=== PATIENT | female | born 1940 | race African-American/Black ===

== ENCOUNTER → 2016-02-11 | Outpatient (CLI) | payer MEDICARE, OTHER ==
[~2016-02-11] VITALS: Ht 167.6 cm; Wt 50.8 kg
[~2016-02-11] MED LIST: CRANBERRY500 M3 PO; CULTURELLE1 EACH ORAL; FENTANYL1 EACH TDERMAL; GABAPENTIN600 MG ORAL; LEVOTHYROXINE100 MCG ORAL; LEXAPRO20 MG ORAL; LORAZEPAM2 MG ORAL; LYRICA50 MG ORAL; Lidocaine 2% MPF 5ml Vial INJ ONE; Lidocaine 4% Top Soln 50ml TOPIC ONE; MAGNESIUM200 M1 PO; MIRTAZAPINE15 M3 ORAL; OXYCODONE HCL5 M2 ORAL; RESTORIL30 MG ORAL; ROXICODONE5 MG ORAL; VIT C PO; ZINC50 M2 ORAL; [UNRECOGNIZED DRUG - OTHER] PO
--- NOTE | 2016-02-15 10:32 | Diagnostic Imaging Report ---
Indication: Pain in the lower spine Technique: IV administration 25.5 mCi 99M technetium MDP. Flow, blood pool, and static images obtained of the pelvic, lower lumbar, and lower thoracic regions. Comparison: No correlating studies are available Findings: Flow and blood pool images are unremarkable. Photopenic defects over the spine likely reflect prior spinal fusion hardware. There is mild increased uptake at the lumbosacral junction in the region of the lower pedicle screws. There is mild increased uptake on the iliac side of sacroiliac joints. There is increased activity along the course of the thoracic spine These most likely represent degenerative changes normal renal and bladder activity is demonstrated. No abnormal uptake to suggest osteomyelitis is demonstrated Impression: Postsurgical changes, as described. Likely degenerative changes. No definite scintigraphic findings to suggest acute osteomyelitis
== END | disposition home or self-care (01) ==
LOC: NUM 10:31
DX: M86.9 Osteomyelitis, unspecified (principal)
CPT/HCPCS: 78315; A4641

== ENCOUNTER 2016-02-12 11:52 | Outpatient (RCR) | payer MEDICARE, OTHER ==
[~2016-02-12 11:52] MED LIST changes: -Lidocaine 2% MPF 5ml Vial INJ ONE; -Lidocaine 4% Top Soln 50ml TOPIC ONE
== END 2016-03-09 | disposition home or self-care (01) ==
LOC: WCC 11:52
DX: L89.314 Pressure ulcer of right buttock, stage 4 (principal); L02.212 Cutaneous abscess of back [any part, except buttock and flank]; Z96.659 Presence of unspecified artificial knee joint; Z90.710 Acquired absence of both cervix and uterus
CPT/HCPCS: 11042; 11043; 87070; 87181; 87205

== ENCOUNTER → 2016-02-19 | Outpatient (CLI) | payer MEDICARE, OTHER ==
[~2016-02-19] VITALS: Ht 167.6 cm; Wt 50.8 kg
[~2016-02-19] MED LIST changes: +Lidocaine HCl 2% Jelly 5ml Tube TOPIC ONE
[2016-02-19 14:21] LABS: BASOPHILS % (AUTO) 0.9 % (0.0-2.0); EOSINOPHILS % (AUTO) 0.1 % (0.0-3.0); MEAN CORPUSCULAR HEMOGLOBIN 26.8 PG (27.0-31.0); MEAN CORPUSCULAR HGB CONC 30.1 G/DL (32.0-36.0); MEAN CORPUSCULAR VOLUME 89 FL (80-99); MEAN PLATELET VOLUME 5.5 FL (6.5-10.1); MONOCYTES % (AUTO) 11.3 % (1.0-10.0); NEUTROPHILS % (AUTO) 61.6 % (45.0-75.0); PLATELET COUNT 383 K/UL (150-450); RED BLOOD COUNT 3.18 M/UL (4.20-5.40); RED CELL DISTRIBUTION WIDTH 16.6 % (11.6-14.8); WHITE BLOOD COUNT 5.9 K/UL (4.8-10.8)
== END | disposition home or self-care (01) ==
LOC: WCC 13:49
DX: L98.429 Non-pressure chronic ulcer of back with unspecified severity (principal)
CPT/HCPCS: 36415; 85025; 85651; 86140

== ENCOUNTER 2016-03-10 12:00 | Outpatient (RCR) | payer MEDICARE, OTHER ==
[~2016-03-10] VITALS: Ht 167.6 cm; Wt 50.8 kg
[~2016-03-10 12:00] MED LIST changes: -Lidocaine HCl 2% Jelly 5ml Tube TOPIC ONE
[2016-03-12] MEDS ORDERED: Lidocaine/Epinephrine 2% 20 ML VIAL IV ONE (16:45)
[2016-03-19] MEDS ORDERED: Lidocaine 4% Top Soln 50ml TOPIC ONE (14:00)
== END 2016-04-06 | disposition home or self-care (01) ==
LOC: WCC 12:00
DX: L89.314 Pressure ulcer of right buttock, stage 4 (principal); G82.22 Paraplegia, incomplete; L02.212 Cutaneous abscess of back [any part, except buttock and flank]; Z90.710 Acquired absence of both cervix and uterus; Z96.659 Presence of unspecified artificial knee joint
CPT/HCPCS: 10060; 11043

== ENCOUNTER 2016-04-08 12:51 | Outpatient (RCR) | payer MEDICARE, OTHER ==
[~2016-04-08] VITALS: Ht 167.6 cm; Wt 50.8 kg
[2016-04-16] MEDS ORDERED: Lidocaine 2% MPF 5ml Vial INJ ONE (16:45)
[2016-04-16] MEDS ORDERED: Silver Nitrate Stick TOPIC ONE (16:45)
== END 2016-05-07 | disposition home or self-care (01) ==
LOC: WCC 12:51
DX: L89.159 Pressure ulcer of sacral region, unspecified stage (principal); L02.212 Cutaneous abscess of back [any part, except buttock and flank]; Z88.8 Allergy status to other drugs, medicaments and biological substances; Z90.710 Acquired absence of both cervix and uterus; Z96.659 Presence of unspecified artificial knee joint; G82.20 Paraplegia, unspecified
CPT/HCPCS: 10060; 11043; 11044

== ENCOUNTER 2016-06-10 12:00 | Outpatient (RCR) | payer MEDICARE, OTHER | END 2016-07-07 | disposition home or self-care (01) | LOC: WCC 12:00 | DX: L89.153 Pressure ulcer of sacral region, stage 3 (principal); L89.314 Pressure ulcer of right buttock, stage 4; L02.31 Cutaneous abscess of buttock; L89.323 Pressure ulcer of left buttock, stage 3; S31.000S Unspecified open wound of lower back and pelvis without penetration into retroperitoneum, sequela; G82.22 Paraplegia, incomplete; Z90.710 Acquired absence of both cervix and uterus; Z96.659 Presence of unspecified artificial knee joint; G82.20 Paraplegia, unspecified | CPT/HCPCS: 11042; 11043; 97605 ==

== ENCOUNTER 2016-06-17 14:22 | Outpatient (CLI) | payer MEDICARE, OTHER ==
--- NOTE | 2016-06-18 10:37 | Diagnostic Imaging Report ---
Indication: Right hip pain. Chronic nonhealing decubitus ulcer Technique: continuous helical imaging in the transaxial plane was performed from the iliac crests to the pubic symphysis with attention to the right hip. Coronal 2-D reformatted images were also generated. Study obtained in a Siemens Sensation [address] total DLP 318 mGycm CTD/vol 11 mGy Comparison: None Findings: There is no evidence of an acute fracture or significant malalignment identified on this examination. There is decubitus ulcer noted posterior to the right hip. A tract of air noted extending deep within the soft tissues with air surrounding the right greater trochanter within what is probably the greater trochanteric bursa. The study was done without intravenous contrast material. Difficult to assess for abscess given this limitation but no obvious large fluid collection is identified. There is generalized subcutaneous edema present presumably on the basis of cellulitis. There is no erosion of the cortex of the proximal femur. There is no periosteal reaction definitely identified. Impression: Decubitus ulcer tracking deep within the soft tissues in continuity with the greater trochanter bursa. No obvious abscess but the study is limited in this regard as no IV contrast was given. No obvious CT evidence for acute osteomyelitis. Note: MRI and bone scan are much more sensitive for acute osteomyelitis. CT cannot make the diagnosis until relatively late in the disease process. The CT scanner at [facility] is accredited by the [employer] and the scans are performed using dose optimization techniques as appropriate to a performed exam including Automatic Exposure control.
== END 2016-06-17 16:00 | disposition home or self-care (01) ==
LOC: RAD 14:22
DX: S71.001A Unspecified open wound, right hip, initial encounter (principal); X58.XXXA Exposure to other specified factors, initial encounter; Y93.9 Activity, unspecified; Y92.9 Unspecified place or not applicable

== ENCOUNTER 2016-08-05 12:48 | Outpatient (RCR) | payer MEDICARE, OTHER | END 2016-08-06 | disposition home or self-care (01) | LOC: WCC 12:48 | DX: L89.154 Pressure ulcer of sacral region, stage 4 (principal); L89.320 Pressure ulcer of left buttock, unstageable; Z90.710 Acquired absence of both cervix and uterus; Z96.659 Presence of unspecified artificial knee joint; G82.20 Paraplegia, unspecified | CPT/HCPCS: 11042; 11045 ==

== ENCOUNTER 2016-08-12 12:37 | Outpatient (RCR) | payer MEDICARE, OTHER ==
[~2016-08-12] VITALS: Ht 167.6 cm; Wt 50.8 kg
[2016-08-13] MEDS ORDERED: Lidocaine 2% MPF 5ml Vial INJ ONE (12:45)
== END 2016-09-06 | disposition home or self-care (01) ==
LOC: WCC 12:37
DX: L89.152 Pressure ulcer of sacral region, stage 2 (principal); L89.320 Pressure ulcer of left buttock, unstageable; Z90.710 Acquired absence of both cervix and uterus; Z96.659 Presence of unspecified artificial knee joint; Z88.8 Allergy status to other drugs, medicaments and biological substances
CPT/HCPCS: 11042; 11043; 11046

== ENCOUNTER 2016-09-09 12:40 | Outpatient (RCR) | payer MEDICARE, OTHER | END 2016-10-07 | disposition home or self-care (01) | LOC: WCC 12:40 | DX: L89.324 Pressure ulcer of left buttock, stage 4 (principal); G82.20 Paraplegia, unspecified; Z90.710 Acquired absence of both cervix and uterus; Z90.49 Acquired absence of other specified parts of digestive tract; Z96.659 Presence of unspecified artificial knee joint | CPT/HCPCS: 11043; 15275; 97605; Q4131 ==

== ENCOUNTER 2016-09-23 12:58 | Outpatient (CLI) | payer MEDICARE, OTHER | END 2016-09-23 14:58 | disposition home or self-care (01) | LOC: LAB 12:58 | DX: E46 Unspecified protein-calorie malnutrition (principal) | CPT/HCPCS: 84134 ==

== ENCOUNTER 2016-10-28 12:14 | Outpatient (RCR) | payer MEDICARE, OTHER ==
[~2016-10-28] VITALS: Ht 167.6 cm; Wt 50.8 kg
[2016-10-29] MEDS ORDERED: Lidocaine HCl 2% Jelly 5ml Tube TOPIC ONE (09:15)
== END 2016-11-06 | disposition home or self-care (01) ==
LOC: WCC 12:14
DX: L89.324 Pressure ulcer of left buttock, stage 4 (principal); S31.000A Unspecified open wound of lower back and pelvis without penetration into retroperitoneum, initial encounter; X58.XXXA Exposure to other specified factors, initial encounter; Y93.9 Activity, unspecified; Y92.9 Unspecified place or not applicable; Z88.8 Allergy status to other drugs, medicaments and biological substances; G82.20 Paraplegia, unspecified; Z90.710 Acquired absence of both cervix and uterus; Z90.49 Acquired absence of other specified parts of digestive tract; Z96.659 Presence of unspecified artificial knee joint
CPT/HCPCS: 11043; 17250; 97605

== ENCOUNTER 2016-11-25 12:00 | Outpatient (RCR) | payer MEDICARE, OTHER | END 2016-12-07 | disposition home or self-care (01) | LOC: WCC 12:00 | DX: L89.324 Pressure ulcer of left buttock, stage 4 (principal); B99.9 Unspecified infectious disease; G82.20 Paraplegia, unspecified; Z90.710 Acquired absence of both cervix and uterus; Z90.49 Acquired absence of other specified parts of digestive tract; Z96.659 Presence of unspecified artificial knee joint | CPT/HCPCS: 11042; 11043; 11044 ==

== ENCOUNTER 2016-12-09 12:30 | Outpatient (RCR) | payer MEDICARE, OTHER ==
[~2016-12-09] VITALS: Ht 167.6 cm; Wt 50.8 kg
[2016-12-23] MEDS ORDERED: Lidocaine 4% Top Soln 50ml TOPIC ONE (16:15)
[2017-01-07] MEDS ORDERED: Lidocaine 2% 20mg/ml/EPI 0.01mg/ml 20ml IV ONE (10:00)
== END 2017-01-06 | disposition home or self-care (01) ==
LOC: WCC 12:30
DX: L89.329 Pressure ulcer of left buttock, unspecified stage (principal); S31.000A Unspecified open wound of lower back and pelvis without penetration into retroperitoneum, initial encounter; X58.XXXA Exposure to other specified factors, initial encounter; Y93.9 Activity, unspecified; Y92.9 Unspecified place or not applicable; Z90.710 Acquired absence of both cervix and uterus; Z96.659 Presence of unspecified artificial knee joint; G82.20 Paraplegia, unspecified
CPT/HCPCS: 10061; 11042; 11043

== ENCOUNTER 2017-01-13 12:30 | Outpatient (RCR) | payer MEDICARE, OTHER | END 2017-02-06 | disposition home or self-care (01) | LOC: WCC 12:30 | DX: L89.324 Pressure ulcer of left buttock, stage 4 (principal); S31.000A Unspecified open wound of lower back and pelvis without penetration into retroperitoneum, initial encounter; L08.9 Local infection of the skin and subcutaneous tissue, unspecified; X58.XXXA Exposure to other specified factors, initial encounter; Y93.9 Activity, unspecified; Y92.9 Unspecified place or not applicable; G82.20 Paraplegia, unspecified; Z90.710 Acquired absence of both cervix and uterus; Z96.659 Presence of unspecified artificial knee joint; Z88.8 Allergy status to other drugs, medicaments and biological substances | CPT/HCPCS: 11043; 11044 ==

== ENCOUNTER 2017-02-10 12:03 | Outpatient (RCR) | payer MEDICARE, OTHER | END 2017-03-09 | disposition home or self-care (01) | LOC: WCC 12:03 | DX: L89.324 Pressure ulcer of left buttock, stage 4 (principal); L02.212 Cutaneous abscess of back [any part, except buttock and flank]; G82.22 Paraplegia, incomplete; Z88.8 Allergy status to other drugs, medicaments and biological substances; Z90.710 Acquired absence of both cervix and uterus; Z96.659 Presence of unspecified artificial knee joint | CPT/HCPCS: 11043; 11044 ==

== ENCOUNTER 2017-02-10 12:38 | Outpatient (CLI) | payer MEDICARE, OTHER | END 2017-02-10 14:38 | disposition home or self-care (01) | LOC: LAB 12:38 | DX: E46 Unspecified protein-calorie malnutrition (principal) | CPT/HCPCS: 84134 ==

== ENCOUNTER 2017-03-24 12:16 | Outpatient (RCR) | payer MEDICARE, OTHER | END 2017-04-06 | disposition home or self-care (01) | LOC: WCC 12:16 | DX: L89.324 Pressure ulcer of left buttock, stage 4 (principal); S31.000A Unspecified open wound of lower back and pelvis without penetration into retroperitoneum, initial encounter; X58.XXXA Exposure to other specified factors, initial encounter; Y93.9 Activity, unspecified; Y92.9 Unspecified place or not applicable; G82.20 Paraplegia, unspecified; Z88.8 Allergy status to other drugs, medicaments and biological substances; Z90.710 Acquired absence of both cervix and uterus; Z96.659 Presence of unspecified artificial knee joint | CPT/HCPCS: 11043 ==

== ENCOUNTER 2017-04-07 11:44 | Outpatient (RCR) | payer MEDICARE, OTHER | END 2017-05-07 | disposition home or self-care (01) | LOC: WCC 11:44 | DX: L89.324 Pressure ulcer of left buttock, stage 4 (principal); L89.152 Pressure ulcer of sacral region, stage 2; G82.20 Paraplegia, unspecified; S31.000A Unspecified open wound of lower back and pelvis without penetration into retroperitoneum, initial encounter; X58.XXXA Exposure to other specified factors, initial encounter; Y93.9 Activity, unspecified; Y92.9 Unspecified place or not applicable; Z90.710 Acquired absence of both cervix and uterus; Z96.659 Presence of unspecified artificial knee joint; Z88.8 Allergy status to other drugs, medicaments and biological substances | CPT/HCPCS: 11042; 11044; 87070; 87181; 87205 ==

== ENCOUNTER 2017-05-05 13:53 | Outpatient (CLI) | payer MEDICARE, OTHER ==
[2017-05-05 14:29] LABS: BASOPHILS % (AUTO) 0.9 % (0.0-2.0); EOSINOPHILS % (AUTO) 0.2 % (0.0-3.0); HEMATOCRIT 25.4 % (37.0-47.0); HEMOGLOBIN 8.3 G/DL (12.0-16.0); LYMPHOCYTES % (AUTO) 14.6 % (20.0-45.0); MEAN CORPUSCULAR VOLUME 89 FL (80-99); MONOCYTES % (AUTO) 8.4 % (1.0-10.0); NEUTROPHILS % (AUTO) 75.9 % (45.0-75.0); PLATELET COUNT 327 K/UL (150-450); RED BLOOD COUNT 2.86 M/UL (4.20-5.40); RED CELL DISTRIBUTION WIDTH 13.3 % (11.6-14.8); WHITE BLOOD COUNT 10.8 K/UL (4.8-10.8)
== END 2017-05-05 15:53 | disposition home or self-care (01) ==
LOC: LAB 13:53
DX: E46 Unspecified protein-calorie malnutrition (principal)
CPT/HCPCS: 36415; 84134; 85025

== ENCOUNTER 2017-05-12 12:40 | Outpatient (RCR) | payer MEDICARE, OTHER ==
[~2017-05-12] VITALS: Ht 167.6 cm; Wt 50.8 kg
[2017-05-26] MEDS ORDERED: Lidocaine 4% Top Soln 50ml TOPIC ONE (16:45)
[2017-05-26] MEDS ORDERED: Lidocaine 1% MPF 10mg/ml 5ml INJ ONE (16:45)
== END 2017-06-06 | disposition home or self-care (01) ==
LOC: WCC 12:40
DX: L89.324 Pressure ulcer of left buttock, stage 4 (principal); L89.152 Pressure ulcer of sacral region, stage 2; S31.000A Unspecified open wound of lower back and pelvis without penetration into retroperitoneum, initial encounter; X58.XXXA Exposure to other specified factors, initial encounter; Z90.710 Acquired absence of both cervix and uterus; Z96.659 Presence of unspecified artificial knee joint; G82.20 Paraplegia, unspecified; Z88.8 Allergy status to other drugs, medicaments and biological substances
CPT/HCPCS: 11044

== ENCOUNTER 2017-08-11 12:22 | Outpatient (RCR) | payer MEDICARE, OTHER ==
[~2017-08-11] VITALS: Ht 167.6 cm; Wt 50.8 kg
[2017-09-01] MEDS ORDERED: Lidocaine 4% Top Soln 50ml TOPIC ONE (09:45)
== END 2017-09-06 | disposition home or self-care (01) ==
LOC: WCC 12:22
DX: S21.90XA Unspecified open wound of unspecified part of thorax, initial encounter (principal); S31.829A Unspecified open wound of left buttock, initial encounter; X58.XXXA Exposure to other specified factors, initial encounter; Y93.9 Activity, unspecified; Y92.9 Unspecified place or not applicable; Z90.710 Acquired absence of both cervix and uterus; Z96.659 Presence of unspecified artificial knee joint; G82.20 Paraplegia, unspecified; Z88.8 Allergy status to other drugs, medicaments and biological substances
CPT/HCPCS: 11043; 11044; 84134

== ENCOUNTER → 2017-08-11 | Outpatient (CLI) | payer MEDICARE, OTHER | END | disposition home or self-care (01) | LOC: LAB 13:14 | DX: E46 Unspecified protein-calorie malnutrition (principal) | CPT/HCPCS: 84134 ==

== ENCOUNTER 2017-09-08 12:20 | Outpatient (RCR) | payer MEDICARE, OTHER ==
[~2017-09-08] VITALS: Ht 167.6 cm; Wt 50.8 kg
== END 2017-10-07 | disposition home or self-care (01) ==
LOC: WCC 12:20
DX: S21.90XD Unspecified open wound of unspecified part of thorax, subsequent encounter (principal); S31.829D Unspecified open wound of left buttock, subsequent encounter; X58.XXXD Exposure to other specified factors, subsequent encounter; Z90.710 Acquired absence of both cervix and uterus; Z96.659 Presence of unspecified artificial knee joint; G82.20 Paraplegia, unspecified; Z88.8 Allergy status to other drugs, medicaments and biological substances
CPT/HCPCS: 11043; 11044

== ENCOUNTER 2017-11-03 12:24 | Outpatient (RCR) | payer MEDICARE, OTHER | END 2017-11-06 | disposition home or self-care (01) | LOC: WCC 12:24 | DX: S21.90XA Unspecified open wound of unspecified part of thorax, initial encounter (principal); S31.829A Unspecified open wound of left buttock, initial encounter; X58.XXXA Exposure to other specified factors, initial encounter; Y92.9 Unspecified place or not applicable; R50.9 Fever, unspecified; Z90.710 Acquired absence of both cervix and uterus; Z96.659 Presence of unspecified artificial knee joint; G82.20 Paraplegia, unspecified; Z88.8 Allergy status to other drugs, medicaments and biological substances | CPT/HCPCS: 11043; 11044 ==

== ENCOUNTER 2017-11-10 11:57 | Outpatient (RCR) | payer MEDICARE, OTHER ==
[~2017-11-10] VITALS: Ht 170.2 cm; Wt 45.4 kg
[2017-11-10] MEDS ORDERED: Lidocaine 1% MPF 10mg/ml 5ml INJ ONE (14:00)
== END 2017-12-07 | disposition home or self-care (01) ==
LOC: WCC 11:57
DX: S31.829A Unspecified open wound of left buttock, initial encounter (principal); S21.90XA Unspecified open wound of unspecified part of thorax, initial encounter; X58.XXXA Exposure to other specified factors, initial encounter; Z90.710 Acquired absence of both cervix and uterus; Z96.659 Presence of unspecified artificial knee joint; G82.20 Paraplegia, unspecified
CPT/HCPCS: 11042; 11043; 15004

== ENCOUNTER 2017-12-08 10:28 | Outpatient (RCR) | payer MEDICARE, OTHER | END 2018-01-06 | disposition home or self-care (01) | LOC: WCC 10:28 | DX: S31.000S Unspecified open wound of lower back and pelvis without penetration into retroperitoneum, sequela (principal); G82.22 Paraplegia, incomplete; L89.154 Pressure ulcer of sacral region, stage 4; X58.XXXS Exposure to other specified factors, sequela; Z90.710 Acquired absence of both cervix and uterus; Z96.659 Presence of unspecified artificial knee joint | CPT/HCPCS: 97605 ==

== ENCOUNTER 2018-01-12 09:57 | Outpatient (RCR) | payer MEDICARE, OTHER | END 2018-02-06 | disposition home or self-care (01) | LOC: WCC 09:57 | DX: L89.324 Pressure ulcer of left buttock, stage 4 (principal); S31.000S Unspecified open wound of lower back and pelvis without penetration into retroperitoneum, sequela; G82.22 Paraplegia, incomplete; Z88.8 Allergy status to other drugs, medicaments and biological substances; Z90.710 Acquired absence of both cervix and uterus; Z96.659 Presence of unspecified artificial knee joint | CPT/HCPCS: 10060; 11043; 97605 ==

== ENCOUNTER 2018-02-09 10:25 | Outpatient (RCR) | payer MEDICARE, OTHER ==
[~2018-02-09] VITALS: Ht 167.6 cm; Wt 45.4 kg
== END 2018-03-09 | disposition home or self-care (01) ==
LOC: WCC 10:25
DX: L89.324 Pressure ulcer of left buttock, stage 4 (principal); S31.000A Unspecified open wound of lower back and pelvis without penetration into retroperitoneum, initial encounter; X58.XXXA Exposure to other specified factors, initial encounter; G82.20 Paraplegia, unspecified; Z90.710 Acquired absence of both cervix and uterus; Z96.659 Presence of unspecified artificial knee joint
CPT/HCPCS: 11043

== ENCOUNTER 2018-03-23 12:29 | Outpatient (RCR) | payer MEDICARE, OTHER ==
[~2018-03-23] VITALS: Ht 167.6 cm; Wt 45.4 kg
[2018-03-27] MEDS ORDERED: Lidocaine 2% MPF 5ml Vial INJ ONE (09:15)
== END 2018-04-06 | disposition home or self-care (01) ==
LOC: WCC 12:29
DX: L89.324 Pressure ulcer of left buttock, stage 4 (principal); S21.209A Unspecified open wound of unspecified back wall of thorax without penetration into thoracic cavity, initial encounter; X58.XXXA Exposure to other specified factors, initial encounter; Z88.8 Allergy status to other drugs, medicaments and biological substances; Z90.710 Acquired absence of both cervix and uterus; Z96.659 Presence of unspecified artificial knee joint
CPT/HCPCS: 10140; 11043

== ENCOUNTER 2018-05-04 12:00 | Outpatient (RCR) | payer MEDICARE, OTHER | END 2018-05-07 | disposition home or self-care (01) | LOC: WCC 12:00 | DX: L89.324 Pressure ulcer of left buttock, stage 4 (principal); S21.209A Unspecified open wound of unspecified back wall of thorax without penetration into thoracic cavity, initial encounter; X58.XXXA Exposure to other specified factors, initial encounter; G82.20 Paraplegia, unspecified; Z90.710 Acquired absence of both cervix and uterus | CPT/HCPCS: 11043; 11044 ==

== ENCOUNTER 2018-05-18 12:08 | Outpatient (RCR) | payer MEDICARE, OTHER | END 2018-06-06 | disposition home or self-care (01) | LOC: WCC 12:08 | DX: L89.324 Pressure ulcer of left buttock, stage 4 (principal); S21.90XA Unspecified open wound of unspecified part of thorax, initial encounter; S21.90XD Unspecified open wound of unspecified part of thorax, subsequent encounter; X58.XXXD Exposure to other specified factors, subsequent encounter; Z90.710 Acquired absence of both cervix and uterus; Z96.659 Presence of unspecified artificial knee joint; G82.20 Paraplegia, unspecified; G40.909 Epilepsy, unspecified, not intractable, without status epilepticus; Z88.8 Allergy status to other drugs, medicaments and biological substances; Z79.899 Other long term (current) drug therapy | CPT/HCPCS: 11042; 11043 ==

== ENCOUNTER 2018-06-07 10:12 | Outpatient (RCR) | payer MEDICARE, OTHER | END 2018-07-07 | disposition home or self-care (01) | LOC: WCC 10:12 | DX: L89.324 Pressure ulcer of left buttock, stage 4 (principal); S21.209A Unspecified open wound of unspecified back wall of thorax without penetration into thoracic cavity, initial encounter; L89.109 Pressure ulcer of unspecified part of back, unspecified stage; Z90.710 Acquired absence of both cervix and uterus; Z96.659 Presence of unspecified artificial knee joint; G82.20 Paraplegia, unspecified; Z74.01 Bed confinement status; Z79.899 Other long term (current) drug therapy ==

== ENCOUNTER 2018-06-08 11:59 | Outpatient (RCR) | payer MEDICARE, OTHER | END 2018-07-07 | disposition home or self-care (01) | LOC: WCC 11:59 | DX: L89.324 Pressure ulcer of left buttock, stage 4 (principal); S21.209A Unspecified open wound of unspecified back wall of thorax without penetration into thoracic cavity, initial encounter; L89.109 Pressure ulcer of unspecified part of back, unspecified stage; Z88.8 Allergy status to other drugs, medicaments and biological substances; Z90.710 Acquired absence of both cervix and uterus; Z96.659 Presence of unspecified artificial knee joint; G82.20 Paraplegia, unspecified; Z74.01 Bed confinement status; Z79.899 Other long term (current) drug therapy | CPT/HCPCS: 11042; 11043 ==

== ENCOUNTER 2018-07-27 12:00 | Outpatient (RCR) | payer MEDICARE, OTHER | END 2018-08-06 | disposition home or self-care (01) | LOC: WCC 12:00 | DX: L89.324 Pressure ulcer of left buttock, stage 4 (principal); L89.152 Pressure ulcer of sacral region, stage 2; S21.209A Unspecified open wound of unspecified back wall of thorax without penetration into thoracic cavity, initial encounter; X58.XXXA Exposure to other specified factors, initial encounter; Y92.9 Unspecified place or not applicable; G82.20 Paraplegia, unspecified; G40.909 Epilepsy, unspecified, not intractable, without status epilepticus; Z88.8 Allergy status to other drugs, medicaments and biological substances | CPT/HCPCS: 11042; 11043; 11044 ==

== ENCOUNTER 2018-08-17 13:27 | Outpatient (RCR) | payer MEDICARE, OTHER | END 2018-09-06 | disposition home or self-care (01) | LOC: WCC 13:27 | DX: L89.324 Pressure ulcer of left buttock, stage 4 (principal); L89.212 Pressure ulcer of right hip, stage 2; L89.109 Pressure ulcer of unspecified part of back, unspecified stage; G83.9 Paralytic syndrome, unspecified; Z74.01 Bed confinement status; G40.909 Epilepsy, unspecified, not intractable, without status epilepticus; Z96.659 Presence of unspecified artificial knee joint; Z90.710 Acquired absence of both cervix and uterus; Z88.8 Allergy status to other drugs, medicaments and biological substances; Z79.899 Other long term (current) drug therapy | CPT/HCPCS: 11042; 11043; 11044 ==

== ENCOUNTER 2018-09-07 12:03 | Outpatient (RCR) | payer MEDICARE, OTHER ==
[~2018-09-07] VITALS: Ht 167.6 cm; Wt 45.4 kg
[2018-10-05] MEDS ORDERED: Lidocaine HCl 2% Jelly 6ml Tube TOPIC ONE (15:15)
== END 2018-10-07 | disposition home or self-care (01) ==
LOC: WCC 12:03
DX: L89.322 Pressure ulcer of left buttock, stage 2 (principal); L89.154 Pressure ulcer of sacral region, stage 4; S31.0 Open wound of lower back and pelvis; G82.22 Paraplegia, incomplete; Z88.8 Allergy status to other drugs, medicaments and biological substances; Z74.01 Bed confinement status
CPT/HCPCS: 11042; 11043; 11044

== ENCOUNTER 2018-09-23 13:50 | Emergency (ER) | payer MEDICARE, OTHER ==
[~2018-09-23] VITALS: Ht 172.7 cm; Wt 44.5 kg
[2018-09-23 14:16] VITALS: BP 102/68
--- NOTE | 2018-09-23 14:25 | NUR ---
ED Nurse Note: Patient brought into ED by her daughter in a wheelchair as Dr. Mcconnell told the patient to go to ED for IV antibiotics. patiet denies any pain or discomfort at this time
[2018-09-23] MEDS ORDERED: Ertapenem 1 GM in NS 55 ML IVPB ONE (15:00)
--- NOTE | 2018-09-23 15:45 | Emergency Room Report ---
History of Present Illness General Chief Complaint: General Complaint Source: Patient, Medical Record Present Illness HPI 78-year-old female presents ED for evaluation. Is here for IV antibiotics. PMD is Dr. Mcconnell who has been treating patient for UTI. 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 Patient several oral antibiotics and requires IV antibiotics. Denies fevers or chills. Denies flank pain nausea or vomiting. States she feels well. No other aggravating relieving factors. Denies any other associated symptoms Allergies: Coded Allergies: ADHESIVE (Verified Adverse Reaction, Severe, skin buitrago, 08/14/14) PROPOXYPHENE (Verified Adverse Reaction, Severe, Shortness of Breath, ) Patient History Past Medical History: none, HTN, other - gastric cancer Past Surgical History: none Pertinent Family History: none Social History: Denies: smoking, alcohol use, drug use Last Menstrual Period: N/A Now: No Immunizations: UTD Reviewed Nursing Documentation: PMH: Agreed; PSxH: Agreed Nursing Documentation-PMH Hx Cardiac Problems: Yes Hx Cancer: Yes - GASTRIC Hx Gastrointestinal Problems: Yes Hx Neurological Problems: Yes Hx Neurologic Surgery: Yes - LOWBACK SPINE FUSION THAT RESULTED TO BLOOD CLOT THEN PARAPLEGIA Review of Systems All Other Systems: negative except mentioned in HPI Physical Exam Vital Signs Date Time Temp Pulse Resp B/P (MAP) Pulse Ox O2 Delivery O2 Flow Rate FiO2 09/23/18 14:16 98.4 95 18 102/68 (79) 92 Room Air Sp02 EP Interpretation: reviewed, normal General Appearance: no apparent distress, alert, GCS 15, non-toxic, thin Head: normocephalic, atraumatic Eyes: bilateral eye normal inspection, bilateral eye PERRL ENT: hearing grossly normal, normal pharynx, no angioedema, normal voice Neck: full range of motion, supple/symm/no masses Respiratory: chest non-tender, lungs clear, normal breath sounds, speaking full sentences Cardiovascular #1: regular rate, rhythm, no edema Cardiovascular #2: 2+ carotid (R), 2+ carotid (L), 2+ radial (R), 2+ radial (L) , 2+ dorsalis pedis (R), 2+ dorsalis pedis (L) Gastrointestinal: normal bowel sounds, non tender, soft, non-distended, no guarding, no rebound Rectal: deferred Genitourinary: normal inspection, no CVA tenderness Musculoskeletal: back normal, gait/station normal, normal range of motion, non- tender Neurologic: alert, oriented x3, responsive, motor strength/tone normal, sensory intact, speech normal Psychiatric: judgement/insight normal, memory normal, mood/affect normal, no suicidal/homicidal ideation Reflexes: 3+ bicep (R), 3+ bicep (L), 3+ tricep (R), 3+ tricep (L), 3+ knee (R) , 3+ knee (L) Lymphatic: no adenopathy Medical Decision Making Diagnostic Impression: Primary Impression: UTI (urinary tract infection) Qualified Codes: N39.0 - Urinary tract infection, site not specified ER Course Hospital Course 78 yo F presents to ED for IV abx. h/o drug resistant UTIs. Differential diagnoses include: UTI, cystitis, pyelonephritis Clinical course Patient placed on stretcher. After initial history and physical I discussed case with Dr Mcconnell (PMD). Patient received IV Invanz here in ED. Does not require labs or further work- up. Patient tolerated medication without complication. Safe for discharge with close outpatient follow-up. UA noted to be unremarkable. Given patient's discomfort and dysuria I agreed to treat patient with antibiotics. Diagnosis - UTI Stable and discharged home. Instructed to followup with PMD. Return to ED if symptoms recur or worsen Last Vital Signs Date Time Temp Pulse Resp B/P (MAP) Pulse Ox O2 Delivery O2 Flow Rate FiO2 09/23/18 14:29 95 18 Room Air 09/23/18 14:16 98.4 102/68 92 Status: improved Disposition: HOME, SELF-CARE Condition: Stable Zachariah Goldstein MD Sep 23, 2018 15:45
[2018-09-23 15:55] VITALS: BP 102/68
--- NOTE | 2018-09-23 15:55 | NUR ---
ER DISCHARGE NOTE: Patient is cleared to be discharged per ERMD DR MAIN, pt is aox4, on room air, with stable vital signs. pt was given dc and prescription instructions, pt was able to verbalize understanding, pt id band and iv site removed without complications. pt is able to ambulate with steady gait. pt took all belongings.
--- NOTE | 2018-09-23 20:00 | History and Physical Report ---
DATE OF ADMISSION: 09/23/2018 PERTINENT HISTORY: The patient is a 78-year-old lady, well known to me who was seen in the office on September 22, 2018. She has a history of chronic suprapubic catheter. She has paraplegia and neurogenic bladder. She has had recurrent UTIs with ESBL and yesterday she had temperature of 102, was cultured and given 1 gram of ertapenem, 1 gram of vancomycin. She also completed a 6-week course of daptomycin for presumed osteomyelitis that she has had a skin wounds adjacent to her spine, decubitus on the buttocks, and there was concern of osteomyelitis even though was not seen on imaging, wound was closed of the spine. She also completed a course of oral doxycycline after the 6 week course of intravenous antibiotics and she saw her wound doctor Dr. Ziegler this week who felt the wounds were clean and not a source of infection. She is a well taken care of by her daughter at home. She has had multiple hospitalizations and did not wish to be admitted to the hospital. PERTINENT PHYSICAL FINDINGS: VITAL SIGNS: Temperature 98.4, pulse ox 92, respirations 18, pulse 95. HEAD, EYES, EARS, NOSE, AND THROAT: Oral mucosa is moist. Sclerae are nonicteric. NECK: No adenopathy. LUNGS: Clear. HEART: Regular rhythm. ABDOMEN: Soft with ostomy bag. Gastrojejunostomy and suprapubic catheter. EXTREMITIES: Show muscle atrophy. NEUROLOGIC: She is paraplegic. IMPRESSION: 1. Urinary tract infection, presumed ESBL. Final culture pending. 2. Recurrent fevers. 3. Moderate malnutrition. 4. Paraplegia. 5. Anemia of chronic disease. PLAN: Ertapenem 1 g IV in the emergency room on September 23, 2018 and she will come back on September 24, 2018 for this same. I will follow up on her cultures and she will come to my office on September 25, 2018 for further intravenous antibiotics. Juan Mcconnell M.D. DR: Can JOB#: [id number] CC:
== END 2018-09-23 15:55 | disposition home or self-care (01) ==
LOC: EMR 14:59
DX: N39.0 Urinary tract infection, site not specified (principal); Z85.9 Personal history of malignant neoplasm, unspecified; Z98.1 Arthrodesis status; G82.20 Paraplegia, unspecified; I10 Essential (primary) hypertension; Z88.8 Allergy status to other drugs, medicaments and biological substances; Z91.048 Other nonmedicinal substance allergy status
CPT/HCPCS: 96365; 99284; J1335

== ENCOUNTER 2018-09-24 13:42 | Emergency (ER) | payer MEDICARE, OTHER ==
[~2018-09-24] VITALS: Ht 172.7 cm; Wt 44.5 kg
[2018-09-24 13:56] VITALS: BP 115/70
--- NOTE | 2018-09-24 13:56 | NUR ---
ED Nurse Note: Pt came in for IV antibiotic and pt states she has temp 102.5 F on tuesday at her doctor's ofice. Pt was seen here at [facility] yesterday. AAO x4, ambulatory with non labored breathing.
[2018-09-24] MEDS ORDERED: Ertapenem 1 GM in NS 55 ML IVPB ONE (14:15)
[2018-09-24 15:05] VITALS: BP 121/77
--- NOTE | 2018-09-24 15:06 | NUR ---
ER DISCHARGE NOTE: Patient is cleared to be discharged per ERMD, pt is aox4, on room air, with stable vital signs. pt was given dc instructions and an appointment with Dr Mcconnell tomorrow has been confirmed, pt was able to verbalize understanding, pt id band and iv site removed without complications. pt is being assisted with WC by family memeber. pt took all belongings.
--- NOTE | 2018-09-24 18:40 | Emergency Room Report ---
History of Present Illness General Chief Complaint: Fever Source: Patient, Family Member Present Illness HPI 78-year-old female presents ED for evaluation. Patient presenting with UTI. PMD is Dr. Mcconnell. Patient referred here for IV antibiotics as patient has multidrug-resistant UTI in the past. Was given Invanz IV piggyback in his office on Tuesday and came in yesterday for IV antibiotics as his office is closed. Patient states she feels fine. Denies fevers or chills. No other aggravating relieving factors. Denies any other associated symptoms Allergies: Coded Allergies: ADHESIVE (Verified Adverse Reaction, Severe, skin buitrago, 08/14/14) PROPOXYPHENE (Verified Adverse Reaction, Severe, Shortness of Breath, ) Patient History Past Medical History: other - gastric cancer Past Surgical History: none Pertinent Family History: none Social History: Denies: smoking, alcohol use, drug use Now: No Immunizations: UTD Reviewed Nursing Documentation: PMH: Agreed; PSxH: Agreed Nursing Documentation-PMH Past Medical History: No History, Except For Hx Cardiac Problems: No - hystrectomy, back surgery Hx Cancer: Yes - GASTRIC Hx Gastrointestinal Problems: Yes History Of Psychiatric Problem: No - depression, anxiety Hx Neurological Problems: Yes Hx Neurologic Surgery: Yes - LOWBACK SPINE FUSION THAT RESULTED TO BLOOD CLOT THEN PARAPLEGIA Review of Systems All Other Systems: negative except mentioned in HPI Physical Exam Vital Signs Date Time Temp Pulse Resp B/P (MAP) Pulse Ox O2 Delivery O2 Flow Rate FiO2 09/24/18 13:46 98.4 87 17 108/69 (82) 92 Room Air Sp02 EP Interpretation: reviewed, normal General Appearance: no apparent distress, alert, GCS 15, non-toxic Head: normocephalic, atraumatic Eyes: bilateral eye normal inspection, bilateral eye PERRL ENT: hearing grossly normal, normal pharynx, no angioedema, normal voice Neck: full range of motion, supple/symm/no masses Respiratory: chest non-tender, lungs clear, normal breath sounds, speaking full sentences Cardiovascular #1: regular rate, rhythm, no edema Cardiovascular #2: 2+ carotid (R), 2+ carotid (L), 2+ radial (R), 2+ radial (L) , 2+ dorsalis pedis (R), 2+ dorsalis pedis (L) Gastrointestinal: normal bowel sounds, non tender, soft, non-distended, no guarding, no rebound Rectal: deferred Genitourinary: normal inspection, no CVA tenderness Musculoskeletal: back normal, gait/station normal, normal range of motion, non- tender Neurologic: alert, oriented x3, responsive, motor strength/tone normal, sensory intact, speech normal Psychiatric: judgement/insight normal, memory normal, mood/affect normal, no suicidal/homicidal ideation Reflexes: 3+ bicep (R), 3+ bicep (L), 3+ tricep (R), 3+ tricep (L), 3+ knee (R) , 3+ knee (L) Lymphatic: no adenopathy Medical Decision Making Diagnostic Impression: Primary Impression: UTI (urinary tract infection) Qualified Codes: N39.0 - Urinary tract infection, site not specified ER Course Hospital Course 78 yo F presents to ED for UTI. diagnosed by PMD Differential diagnoses include: UTI, cystitis, pyelonephritis Clinical course Patient placed on stretcher. After initial history and physical I ordered IV Invanz. PMD Dr. Mcconnell is aware. Discussed findings with patient and family. Patient will be discharged to home and will follow-up with Dr. Mcconnell in his office tomorrow Diagnosis - UTI Stable and discharged home. Instructed to followup with PMD. Return to ED if symptoms recur or worsen Last Vital Signs Date Time Temp Pulse Resp B/P (MAP) Pulse Ox O2 Delivery O2 Flow Rate FiO2 09/24/18 15:05 98.2 79 17 121/77 98 Room Air Status: improved Disposition: HOME, SELF-CARE Condition: Stable Patient Instructions: Dysuria Additional Instructions: followup with Dr Mcconnell in his office tomorrow Zachariah Goldstein MD Sep 24, 2018 18:40
== END 2018-09-24 15:05 | disposition home or self-care (01) ==
LOC: EMR 15:05
DX: N39.0 Urinary tract infection, site not specified (principal); Z88.8 Allergy status to other drugs, medicaments and biological substances; Z90.710 Acquired absence of both cervix and uterus; F32.9 Major depressive disorder, single episode, unspecified; F41.9 Anxiety disorder, unspecified; Z98.1 Arthrodesis status; G82.20 Paraplegia, unspecified
CPT/HCPCS: 96365; 99284; J1335

== ENCOUNTER 2018-10-19 12:05 | Outpatient (RCR) | payer MEDICARE, OTHER | END 2018-11-06 | disposition home or self-care (01) | LOC: WCC 12:05 | DX: L89.152 Pressure ulcer of sacral region, stage 2 (principal); L89.324 Pressure ulcer of left buttock, stage 4; S21.209A Unspecified open wound of unspecified back wall of thorax without penetration into thoracic cavity, initial encounter; X58.XXXA Exposure to other specified factors, initial encounter; Y92.9 Unspecified place or not applicable; G82.20 Paraplegia, unspecified; Z96.659 Presence of unspecified artificial knee joint; G40.909 Epilepsy, unspecified, not intractable, without status epilepticus; Z79.899 Other long term (current) drug therapy; Z88.8 Allergy status to other drugs, medicaments and biological substances; Z90.710 Acquired absence of both cervix and uterus | CPT/HCPCS: 11043; 11044 ==